=== PATIENT | female | born 1935 | race Caucasian/White ===

== ENCOUNTER 2019-02-20 18:23 | Observation (INO) | payer BC, MEDICARE ==
--- NOTE | 2019-02-20 20:13 | C.PDOC ---
History Of Present Illness Patient presents to the ER with chest pain radiating to the left arm. Denies nausea, vomiting, diarrhea, or SOB. Currently speaking in complete sentences. Time Seen by Provider: 02/20/19 20:13 Chief Complaint (Nursing): Chest Pain History Per: Patient History/Exam Limitations: no limitations Onset/Duration Of Symptoms: Hrs Current Symptoms Are (Timing): Still Present Severity: Moderate Pain Scale Rating Of: 4 Associated Symptoms: denies: Nausea, Dyspnea, Other (Vomiting) Modifying Factors: None Exacerbating Factors: None Alleviating Factors: None Recent travel outside of the [place]: No Past Medical History Reviewed: Historical Data, Nursing Documentation, Vital Signs Vital Signs: Last Vital Signs Temp 97.9 F 02/20/19 18:44 Pulse 73 02/20/19 19:15 Resp 18 02/20/19 19:15 BP 173/75 H 02/20/19 19:15 Pulse Ox 95 02/20/19 19:15 - Medical History PMH: Arthritis, HTN, Rheumatoid Arthritis Denies: Chronic Kidney Disease - [facility] Procedures LAPAROSCOPIC INCISIONAL HERNIA REPAIR W GRAFT OR PROSTHESIS (06/13/15) Family History: States: No Known Family Hx - Social History Hx Alcohol Use: No Hx Substance Use: No - Immunization History Hx Tetanus Toxoid Vaccination: No Hx Influenza Vaccination: No Hx Pneumococcal Vaccination: No Review Of Systems Constitutional: Negative for: Fever, Chills Cardiovascular: Positive for: Chest Pain Respiratory: Negative for: Cough, Shortness of Breath Gastrointestinal: Negative for: Nausea, Vomiting, Diarrhea Neurological: Negative for: Weakness, Numbness Physical Exam - Physical Exam Appears: Non-toxic Skin: Warm, Dry Head: Normacephalic Oral Mucosa: Moist Chest: Symmetrical, No Tenderness Cardiovascular: Rhythm Regular Respiratory: No Rales, No Rhonchi, No Wheezing Gastrointestinal/Abdominal: Soft, No Tenderness Neurological/Psych: Oriented x3 ED Course And Treatment - Laboratory Results Result Diagrams: 02/20/19 20:26 02/20/19 20:26 ECG: Interpreted By Me, Viewed By Me ECG Rhythm: Sinus Rhythm (74), Nonspecific Changes O2 Sat by Pulse Oximetry: 95 (Room air) Pulse Ox Interpretation: Normal - Radiology CXR: Interpreted by Me, Viewed By Me CXR Interpretation: Yes: Infiltrates (? rll ), Other (mild vasc congestion). No: Fracture, Pnemothorax Progress Note: EKG, blood work, CXR, and urinalysis ordered. Aspirin administered. Disposition Discussed With Dr.: Dasha Greene Comment: accepted the pt onher service and took over the care at Doctor Will See Patient In The: Hospital Counseled Patient/Family Regarding: Studies Performed, Diagnosis - Disposition Disposition: HOSPITALIZED Disposition Time: 20:13 Condition: FAIR - Clinical Impression Clinical Impression: Chest pain - Scribe Statement The provider has reviewed the documentation as recorded by the Scribe Erick Schaffer All medical record entries made by the Fidelinaibe were at my direction and personally dictated by me. I have reviewed the chart and agree that the record accurately reflects my personal performance of the history, physical exam, medical decision making, and the department course for this patient. I have also personally directed, reviewed, and agree with the discharge instructions and disposition. Decision To Admit - Pt Status Changed To: Hospital Disposition Of: Observation - . Bed Request Type: Telemetry Admitting Physician: Dasha Greene Patient Diagnosis: Chest pain
[2019-02-20] MEDS ORDERED: Aspirin 325 mg EC Tablets PO STA (20:19)
[2019-02-20 20:32] LABS: BASO % 0.5 % (0.0-2.0); EOS # 0.2 K/uL (0.0-0.7); LYMPH # 1.3 K/uL (1.0-4.3); LYMPH % 18.8 % (20.0-40.0); MEAN CORPUSCULAR HEMOGLOBIN 32.2 pg (27.0-31.0); MEAN CORPUSCULAR HGB CONC 32.8 g/dL (33.0-37.0); MEAN PLATELET VOLUME 11.6 fL (7.2-11.7); MONO # 0.9 K/uL (0.0-0.8); MONO % 12.2 % (0.0-10.0); NEUT # 4.6 K/uL (1.8-7.0); NEUT % 65.5 % (50.0-75.0); RBC 3.87 Mil/uL (3.80-5.20)
[2019-02-20 20:35] LABS: HEMOGLOBIN 12.4 g/dL (11.0-16.0); SQUAMOUS EPITHIAL < 1 /hpf (0-5); URINE BILIRUBIN NEGATIVE (NEGATIVE); URINE BLOOD NEGATIVE (NEGATIVE); URINE CLARITY Clear (Clear); URINE COLOR Yellow (YELLOW); URINE GLUCOSE (UA) NORMAL (Normal); URINE LEUKOCYTE ESTERASE NEG Leu/uL (Negative); URINE PROTEIN NEGATIVE (NEGATIVE); URINE UROBILINOGEN NORMAL mg/dL (0.2-1.0)
[2019-02-20] MEDS ORDERED: Aspirin 325 mg EC Tablets PO ONE (20:41)
[2019-02-20 20:44] LABS: PROTHROMBIN TIME 11.4 SECONDS (9.7-12.2)
[2019-02-20 20:45] LABS: BLOOD UREA NITROGEN 21 mg/dL (7-17); CALCIUM 9.4 mg/dl (8.6-10.4); GFR NON-AFRICAN AMERICAN > 60; LIPASE 213 U/L (23-300)
[2019-02-20 20:50] LABS: ALB/GLOB RATIO 1.4 (1.0-2.1); ALBUMIN 4.1 g/dL (3.5-5.0); ALT/SGPT 18 U/L (9-52); AST/SGOT 56 U/L (14-36)
[2019-02-20 20:56] LABS: B-TYPE NATRIURETIC PEPTIDE 190 pg/mL (0-900)
[2019-02-20 22:19] VITALS: RESP 20
[2019-02-20 23:08] VITALS: BMI 25.5
[2019-02-21 04:48] LABS: HDL CHOLESTEROL 57 mg/dL (30-70)
[2019-02-21 04:59] LABS: LDL CHOLESTEROL 79 mg/dL (0-129)
--- NOTE | 2019-02-21 07:36 | RAD ---
Chest x-ray single frontal view HISTORY: Chest pain. COMPARISON: 10/04/2016 FINDINGS: Moderate venous congestion. Patchy increased markings at the left lung base with question left pleural effusion. Atherosclerotic calcification at the aortic knob. Bilateral hilar prominence. Mild cardiomegaly. Punctate right apical granuloma. Degenerative changes in the spine and shoulders. Calcific tendinopathy of the left proximal humerus. Impression: Moderate venous congestion. Patchy increased markings at the left lung base with question left pleural effusion. Atherosclerotic calcification at the aortic knob. Bilateral hilar prominence. Mild cardiomegaly. Punctate right apical granuloma. Degenerative changes in the spine and shoulders. Calcific tendinopathy of the left proximal humerus.
[2019-02-21] MEDS ORDERED: Home Med 1 UNIT (Leflunomide [Arava] 20 MG) PO SCH ×2 (10:00)
[2019-02-21] MEDS ORDERED: Enoxaparin 40 mg Syringe SC SCH (10:00)
[2019-02-21 14:36] LABS: CK-MB 0.99 ng/mL (0.0-3.38)
[2019-02-21 16:20] VITALS: BP 124/72; PULSE 63; TEMP 98; O2SAT 95
--- NOTE | 2019-02-21 19:26 | CP.PCM.CON ---
History of Present Illness - History of Present Illness History of Present Illness: I was asked to see patient by Dr Greene. Patient is a 83 year old female with HTN, hypercholesterolemia nonobstructive CAD (cath 2014) who presents with chest pain. 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 She was at home when she developed chest pressure radiating to the arm. The patient states symptoms occurred at rest. Cardiac enzymes are negative thus far. Review of Systems - Constitutional Constitutional: absent: As Per HPI, Anorexia, Chills, Daytime Sleepiness, Excessive Sweating, Fatigue, Fever, Frequent Falls, Headache, Increased Appetit e, Lethargy, Malaise, Night Sweats, Snoring, Sleep Apnea, Weight Gain, Weight Loss, Weakness, Other - EENT Eyes: absent: As Per HPI, Blind Spots, Blurred Vision, Change in Vision, Decreased Night Vision, Diplopia, Discharge, Dry Eye, Exophthalmos, Floaters, Irritation, Itchy Eyes, Loss of Peripheral Vision, Pain, Photophobia, Requires Corrective Lenses, Sees Flashes, Spots in Vision, Tunnel Vision, Other Visual Disturbances, Loss of Vision, Other Ears: absent: As Per HPI, Decreased Hearing, Ear Discharge, Ear Pain, Tinnitus, Abnormal Hearing, Disequilibrium, Dizziness, Other Nose/Mouth/Throat: absent: As Per HPI, Epistaxis, Nasal Congestion, Nasal Discharge, Nasal Obstruction, Nasal Trauma, Nose Pain, Post Nasal Drip, Sinus Pain, Sinus Pressure, Bleeding Gums, Change in Voice, Dental Pain, Dry Mouth, Dysphagia, Halitosis, Hoarsness, Lip Swelling, Mouth Lesions, Mouth Pain, Odynophagia, Sore Throat, Throat Swelling, Tongue Swelling, Facial Pain, Neck Pain, Neck Mass, Other - Cardiovascular Cardiovascular: Chest Pain, Chest Pain at Rest - Respiratory Respiratory: absent: As Per HPI, Cough, Dyspnea, Hemoptysis, Dyspnea on Exertion, Wheezing, Snoring, Stridor, Pain on Inspiration, Chest Congestion, Excessive Mucous Production, Change in Mucous Color, Pain with Coughing, Other - Gastrointestinal Gastrointestinal: absent: As Per HPI, Abdominal Pain, Belching, Bloating, Change in Bowel Habits, Change in Stool Character, Coffee Ground Emesis, Constipation, Cramping, Diarrhea, Dyspepsia, Dysphagia, Early Satiety, Excessive Flatus, Fecal Incontinence, Heartburn, Hematemesis, Hematochezia, Loose Stools, Melena, Nausea, Odynophagia, Temesmus, Vomiting, Other - Genitourinary Genitourinary: absent: As Per HPI, Change in Urinary Stream, Difficulty Urinating, Dysuria, Flank Pain, Hematuria, Pyuria, Nocturia, Urinary Incontinence, Urinary Frequency, Urinary Hesitance, Urinary Urgency, Voiding Freq/Small Amts, Freq UTI, Hx Renal/Bladder Calculi, Hx /Renal Surgery, Bladder Distension, Other - Musculoskeletal Musculoskeletal: absent: As Per HPI, Abnormal Gait, Arthralgias, Atrophy, Back Pain, Deformity, Joint Swelling, Limited Range of Motion, Loss of Height, Muscle Cramps, Muscle Weakness, Myalgias, Neck Pain, Numbness, Radiating Pain into Limb, Stiffness, Tingling, Other - Integumentary Integumentary: absent: As Per HPI, Acne, Alopecia, Bleeding Lesions, Change in Hair, Change in Nails, Change in Pigmentation, Changing Lesions, Dry Skin, Erythema, Furuncle, Hirsutism, Lesions, New Lesions, Non-Healing Lesions, Photosensitivity, Pruritus, Rash, Skin Pain, Skin Ulcer, Sores, Striae, Swelling, Unusual Bruising, Wounds, Jaundice, Other - Neurological Neurological: absent: As Per HPI, Abnormal Gait, Abnormal Hearing, Abnormal Movements, Abnormal Speech, Behavioral Changes, Burning Sensations, Confusion, Convulsions, Disequilibrium, Dizziness, Numbness, Focal Weakness, Frequent Falls, Headaches, Lack of Coordination, Loss of Vision, Memory Loss, Paresthesias, Radicular Pain, Restless Legs, Sensory Deficit, Syncope, Tingling, Tremor, Vertigo, Weakness, Other Visual Disturbances, Other - Psychiatric Psychiatric: absent: As Per HPI, Abnormal Sleep Pattern, Anhedonia, Anxiety, Auditory Hallucinations, Behavioral Changes, Change in Appetite, Change in Libido, Confusion, Depression, Difficulty Concentrating, Hallucinations, Homicidal Ideation, Hopelessness, Irritability, Memory Loss, Mood Swings, Panic Attacks, Paranoia, Suicidal Ideation, Visual Hallucinations, Tactile Hallucinations, Other - Endocrine Endocrine: absent: As Per HPI, Change in Body Appearance, Change in Libido, Cold Intolorance, Deepening of Voice, Excessive Sweating, Fatigue, Flushing, Heat Intolorance, Increase in Ring/Shoe/Hat Size, Palpitations, Polydipsia, Polyphagia, Polyuria, Other - Hematologic/Lymphatic Hematologic: absent: As Per HPI, Easy Bleeding, Easy Bruising, Lymphadenopathy, Other Past Patient History - Infectious Disease Hx of Infectious Diseases: None - Past Medical History & Family History Past Medical History?: Yes - Past Social History Smoking Status: Never Smoked - CARDIAC Hx Hypertension: Yes - PULMONARY Hx Respiratory Disorders: No - NEUROLOGICAL Hx Neurological Disorder: No - HEENT Hx HEENT Problems: No - RENAL Hx Chronic Kidney Disease: No - ENDOCRINE/METABOLIC Hx Endocrine Disorders: No - HEMATOLOGICAL/ONCOLOGICAL Hx Blood Disorders: No - INTEGUMENTARY Hx Dermatological Problems: No - MUSCULOSKELETAL/RHEUMATOLOGICAL Hx Arthritis: Yes Hx Rheumatoid Arthritis: Yes - GASTROINTESTINAL Hx Gastrointestinal Disorders: No - GENITOURINARY/GYNECOLOGICAL Hx Genitourinary Disorders: No - PSYCHIATRIC Hx Substance Use: No - SURGICAL HISTORY Hx Surgeries: Yes Hx Cataract Extraction: Yes Hx Herniorrhaphy: Yes (2005) Hx Hysterectomy: Yes (30 YRS AGO ) - ANESTHESIA Hx Anesthesia: Yes Hx Anesthesia Reactions: No Hx Malignant Hyperthermia: No Meds Allergies/Adverse Reactions: Allergies Allergy/AdvReac Type Severity Reaction Status Date / Time No Known Allergies Allergy Verified 02/20/19 18:43 - Medications Medications: Current Medications Acetaminophen (Tylenol 325mg Tab) 650 mg PO Q8 [facility] Last Admin: 02/21/19 14:30 Dose: Not Given Aspirin (Ecotrin) 81 mg PO DAILY [facility] Last Admin: 02/21/19 10:39 Dose: 81 mg Carvedilol (Coreg) 6.25 mg PO BID [facility] Last Admin: 02/21/19 18:21 Dose: 6.25 mg Enoxaparin Sodium (Lovenox) 40 mg SC DAILY [facility] Last Admin: 02/21/19 10:40 Dose: 40 mg Home Med (Leflunomide [Arava]) 20 mg PO DAILY [facility] [id number] Ethyl Esters (Lovaza) 4 gm PO DAILY [facility] Pantoprazole Sodium (Protonix Ec Tab) 40 mg PO DAILY [facility] Rosuvastatin Calcium (Crestor) 20 mg PO HS [facility] Physical Exam - Constitutional Appears: Non-toxic - Head Exam Head Exam: NORMAL INSPECTION - Eye Exam Eye Exam: Normal appearance - ENT Exam ENT Exam: Mucous Membranes Moist - Neck Exam Neck exam: Positive for: Normal Inspection - Respiratory Exam Respiratory Exam: NORMAL BREATHING PATTERN - Cardiovascular Exam Cardiovascular Exam: REGULAR RHYTHM, Systolic Murmur - GI/Abdominal Exam GI & Abdominal Exam: Normal Bowel Sounds - Rectal Exam Rectal Exam: Deferred - Extremities Exam Extremities exam: Negative for: pedal edema - Back Exam Back exam: NORMAL INSPECTION - Neurological Exam Neurological exam: Alert, Oriented x3 - Psychiatric Exam Psychiatric exam: Normal Affect - Skin Skin Exam: Normal Color Results - Vital Signs Recent Vital Signs: Last Vital Signs Temp 98 F 02/21/19 16:19 Pulse 63 02/21/19 16:19 Resp 20 02/21/19 16:19 BP 124/72 02/21/19 16:19 Pulse Ox 95 02/21/19 16:19 - Labs Result Diagrams: 02/20/19 20:26 02/20/19 20:26 Labs: Laboratory Results - last 24 hr 02/20/19 02/20/19 02/20/19 20:26 20:26 20:26 WBC 7.0 RBC 3.87 Hgb 12.4 D Hct 37.9 MCV 98.0 D MCH 32.2 H MCHC 32.8 L RDW 14.0 Plt Count 156 MPV 11.6 Neut % (Auto) 65.5 Lymph % (Auto) 18.8 L [place] % (Auto) 12.2 H Eos % (Auto) 3.0 Baso % (Auto) 0.5 Neut # (Auto) 4.6 Lymph # (Auto) 1.3 [place] # (Auto) 0.9 H Eos # (Auto) 0.2 Baso # (Auto) 0.0 PT 11.4 INR 1.0 APTT 27 Sodium 138 Potassium 4.9 Chloride 103 Carbon Dioxide 29 Anion Gap 12 BUN 21 H Creatinine 0.6 L Est GFR ( Amer) > 60 Est GFR (Non-Af Amer) > 60 Random Glucose 118 H Calcium 9.4 Total Bilirubin 0.6 AST 56 H ALT 18 Alkaline Phosphatase 54 Total Creatine Kinase CK-MB (Mass) Troponin I < 0.0120 NT-Pro-B Natriuret Pep 190 Total Protein 7.0 Albumin 4.1 Globulin 2.9 Albumin/Globulin Ratio 1.4 Triglycerides Cholesterol LDL Cholesterol Direct HDL Cholesterol Lipase 213 Urine Color Urine Clarity Urine pH Ur Specific [employer] [employer] Urine Protein Urine Glucose (UA) Urine Ketones Urine Blood Urine Nitrate Urine Bilirubin Urine Urobilinogen Ur Leukocyte Esterase Urine WBC (Auto) Urine RBC (Auto) Ur Squamous Epith Cells 02/20/19 02/21/19 02/21/19 20:26 04:26 04:26 WBC RBC Hgb Hct MCV MCH MCHC RDW Plt Count MPV Neut % (Auto) Lymph % (Auto) [place] % (Auto) Eos % (Auto) Baso % (Auto) Neut # (Auto) Lymph # (Auto) [place] # (Auto) Eos # (Auto) Baso # (Auto) PT INR APTT Sodium Potassium Chloride Carbon Dioxide Anion Gap BUN Creatinine Est GFR ( Amer) Est GFR (Non-Af Amer) Random Glucose Calcium Total Bilirubin AST ALT Alkaline Phosphatase Total Creatine Kinase 94 CK-MB (Mass) 1.10 Troponin I < 0.0120 NT-Pro-B Natriuret Pep Total Protein Albumin Globulin Albumin/Globulin Ratio Triglycerides 64 D Cholesterol 154 LDL Cholesterol Direct 79 HDL Cholesterol 57 Lipase Urine Color Yellow Urine Clarity Clear Urine pH 8.0 Ur Specific [employer] [employer] 1.008 Urine Protein Negative Urine Glucose (UA) Normal Urine Ketones Negative Urine Blood Negative Urine Nitrate Negative Urine Bilirubin Negative Urine Urobilinogen Normal Ur Leukocyte Esterase Neg Urine WBC (Auto) 2 Urine RBC (Auto) 1 Ur Squamous Epith Cells < 1 02/21/19 14:04 WBC RBC Hgb Hct MCV MCH MCHC RDW Plt Count MPV Neut % (Auto) Lymph % (Auto) [place] % (Auto) Eos % (Auto) Baso % (Auto) Neut # (Auto) Lymph # (Auto) [place] # (Auto) Eos # (Auto) Baso # (Auto) PT INR APTT Sodium Potassium Chloride Carbon Dioxide Anion Gap BUN Creatinine Est GFR ( Amer) Est GFR (Non-Af Amer) Random Glucose Calcium Total Bilirubin AST ALT Alkaline Phosphatase Total Creatine Kinase 70 CK-MB (Mass) 0.99 Troponin I < 0.0120 NT-Pro-B Natriuret Pep Total Protein Albumin Globulin Albumin/Globulin Ratio Triglycerides Cholesterol LDL Cholesterol Direct HDL Cholesterol Lipase Urine Color Urine Clarity Urine pH Ur Specific [employer] Urine Protein Urine Glucose (UA) Urine Ketones Urine Blood Urine Nitrate Urine Bilirubin Urine Urobilinogen Ur Leukocyte Esterase Urine WBC (Auto) Urine RBC (Auto) Ur Squamous Epith Cells - EKG Data EKG shows normal: Sinus rhythm Assessment & Plan (1) Aortic stenosis Assessment and Plan: appears to be moderate on exam. may contribute to the patient's symptoms. recommend d/c home. 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 Status: Acute (2) Chest pain Assessment and Plan: as above. cardiac enzymes are negative. can d/c home Status: Acute
[2019-02-22] MEDS ORDERED: Omega-3-Acid Ethyl Esters 1 GM Cap PO SCH (10:00)
[2019-02-22] MEDS ORDERED: Pantoprazole 40 mg EC Tab PO SCH (10:00)
--- NOTE | 2019-02-23 00:06 | CARD ---
APPROVED REPORT Date of service: 02/21/2019 EKG Measurement Heart [id number] <Conclusion> Sinus rhythm with 1st degree AV block Otherwise normal ECG
== END 2019-02-21 20:22 | disposition home or self-care (01) ==
LOC: C.ER 18:23 → C.5S 21:36
PROVIDERS: ADMIT Internal Medicine; ATTEND Internal Medicine
DX: R07.89 Other chest pain (principal); I10 Essential (primary) hypertension; I25.10 Atherosclerotic heart disease of native coronary artery without angina pectoris; M06.9 Rheumatoid arthritis, unspecified
CPT/HCPCS: 36415; 71045; 80053; 80061; 81001; 83690; 83880; 84484; 85025; 85610; 85730; 99285; G0378; J1650